=== PATIENT | female | born 1985 | race African-American/Black ===

== ENCOUNTER 2018-07-10 14:34 | Emergency (ER) | payer OTHER ==
[~2018-07-10] VITALS: Ht 167.6 cm; Wt 49.9 kg
[2018-07-10 14:30] VITALS: BP 146/96
[2018-07-10] MEDS ORDERED: Norco 5mg/325mg tab ORAL ONE (14:45)
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
--- NOTE | 2018-07-10 16:15 | Diagnostic Imaging Report ---
Indication: Right hip pain Technique: 2 views of the right hip Comparison: none Findings: No acute fractures. No dislocations. The joint spaces are preserved Impression: Negative
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
[2018-07-10] MEDS ORDERED: TRAMADOL HCL50 MG ORAL (16:51)
[2018-07-10] MEDS ORDERED: ROBAXIN500 MG PO (16:51)
[2018-07-10] MEDS ORDERED: LIDOCAINE700 M1 TP (16:51)
[2018-07-10 17:00] VITALS: BP 142/91
== END 2018-07-10 17:02 | disposition home or self-care (01) ==
LOC: EDBD 14:34 → EMR 15:26
DX: S70.01XA Contusion of right hip, initial encounter (principal); S50.01XA Contusion of right elbow, initial encounter; M25.531 Pain in right wrist; V00.831A Fall from motorized mobility scooter, initial encounter; Y92.89 Other specified places as the place of occurrence of the external cause
CPT/HCPCS: 29130; 72170; 81025; 99284